=== PATIENT | female | born 1965 | race American Indian/Alaskan Native ===

== ENCOUNTER 2021-08-22 07:26 | Emergency (ER) | payer OTHER ==
[2021-08-22] MEDS ORDERED: SODIUM CHLORIDE 0.9% 1000 ML 1,000 ML IV ONE (08:40)
--- NOTE | 2021-08-22 08:50 | Emergency Department Report ---
ED Dizziness HPI - General Chief Complaint: Dizziness Stated Complaint: DIZZINESS/SYNCOPE Source: patient, EMS Mode of arrival: Stretcher Limitations: No Limitations - History of Present Illness Initial Comments: Patient is a 55-year-old female with past medical history of hypertension who is currently controlled on hydrochlorothiazide, metoprolol who presents emergency department complaint of near syncopal episode while at work. Patient states she felt dizzy and nearly passed out. Patient states that yesterday she was feeling abnormally. She denies any recent fevers chills cough. She denies any chest pain or shortness of breath. She denies history of pulmonary embolism. Patient denies any sick contacts. - Related Data Home Medications Medication Instructions Recorded Confirmed Last Taken hydroCHLOROthiazide 25 mg PO QDAY 08/22/21 08/22/21 Unknown Allergies Allergy/AdvReac Type Severity Reaction Status Date / Time No Known Allergies Allergy Verified 08/22/21 07:44 ED Review of Systems ROS: Stated complaint: DIZZINESS/SYNCOPE Other details as noted in HPI Constitutional: denies: chills, fever Eyes: denies: eye pain, eye discharge, vision change ENT: denies: ear pain, throat pain Respiratory: denies: cough, shortness of breath, wheezing Cardiovascular: denies: chest pain, palpitations Endocrine: no symptoms reported Gastrointestinal: denies: abdominal pain, nausea, diarrhea Genitourinary: denies: urgency, dysuria, discharge Musculoskeletal: denies: back pain, joint swelling, arthralgia Skin: denies: rash, lesions Neurological: denies: headache, weakness, paresthesias Psychiatric: denies: anxiety, depression Hematological/Lymphatic: denies: easy bleeding, easy bruising ED Past Medical Hx - Medications Home Medications: Home Medications Medication Instructions Recorded Confirmed Last Taken Type hydroCHLOROthiazide 25 mg PO QDAY 08/22/21 08/22/21 Unknown History ED Physical Exam - General Limitations: No Limitations General appearance: alert, in no apparent distress - Head Head exam: Present: atraumatic, normocephalic - Eye Eye exam: Present: normal appearance - ENT ENT exam: Present: mucous membranes moist - Neck Neck exam: Present: normal inspection - Respiratory Respiratory exam: Present: normal lung sounds bilaterally. Absent: respiratory distress, wheezes, rales, rhonchi - Cardiovascular Cardiovascular Exam: Present: regular rate, normal rhythm. Absent: systolic murmur, diastolic murmur, rubs, gallop - GI/Abdominal GI/Abdominal exam: Present: soft. Absent: distended, tenderness - Rectal Rectal exam: Present: deferred - Extremities Exam Extremities exam: Present: normal inspection - Back Exam Back exam: Present: normal inspection - Neurological Exam Neurological exam: Present: alert, oriented X3 - Psychiatric Psychiatric exam: Present: normal affect, normal mood - Skin Skin exam: Present: warm, dry, intact, normal color. Absent: rash ED Course Vital Signs 08/22/21 08/22/21 08/22/21 07:41 08:11 08:16 Temperature 98.1 F Pulse Rate 77 89 77 Respiratory 18 14 Rate Blood Pressure 88/51 Blood Pressure 94/63 [Left] O2 Sat by Pulse 95 93 95 Oximetry - Reevaluation(s) Reevaluation #1: 08/22/21 13:11 Patient is improved. Blood pressure is improved. We obtain orthostatics which were notable for blood pressure is 108 systolic and 117 systolic. Patient's vitals have normalized and her labs are grossly normal. EKG shows normal sinus rhythm. I discussed with patient and patient felt comfortable with plan for discharge given that she has been hydrated. Reevaluation #2: 08/22/21 14:07 Patient ambulates with no neurological deficits. She has a steady gait. She has some slight dizziness but no deficits. Given this I discussed the likely etiology of her symptoms is her blood pressure is on the lower side. She has been hydrated, her blood pressure is now improved. Her labs appear normal including normal white blood cell count, creatinine, hemoglobin, negative dimer. Given this I have asked patient to hold her blood pressure medicines and she is to follow-up with primary care this week. ED Medical Decision Making - Lab Data Result diagrams: 08/22/21 09:44 08/22/21 09:44 - EKG Data -: EKG Interpreted by Me EKG shows normal: sinus rhythm - EKG Data Interpretation: other 08/22/21 13:07 Possible old infarct, no previous to comare - Radiology Data Radiology results: report reviewed, image reviewed - Medical Decision Making Patient is a 55-year-old female who presents to the emergency department with complaints of dizziness. Patient has history of hypertension but is noted to be hypotensive upon arrival. She has received 1 L IV fluid with EMS. Differential includes acute kidney injury, dehydration, pulmonary embolism, CVA. Plan for evaluation with chest x-ray, EKG, CT scan of the brain. Will obtain dimer, basic labs and reassess after IV fluids. Orthostatic blood pressures will be collected. Critical care attestation.: If time is entered above; I have spent that time in minutes in the direct care of this critically ill patient, excluding procedure time. ED Disposition Clinical Impression: Dizziness Disposition: HOME / SELF CARE / HOMELESS Is pt being admited?: No Does the pt Need Aspirin: No Condition: Stable Instructions: Dizziness, [id number] Additional Instructions: Please hold your blood pressure for the next few days. If you pressures increase to 140s systolic you should restart your meds. Please call your doctor for an appointment. Referrals: MUMTAZ RHODES MD [Primary Care Provider] - 3-5 Days Forms: Work/School Release Form(ED)
--- NOTE | 2021-08-22 09:06 | XRay Report ---
CHEST 1 VIEW 08/22/2021 8:51 AM INDICATION / CLINICAL INFORMATION: Lightheadedness/Dizziness. COMPARISON: None available. FINDINGS: SUPPORT DEVICES: None. HEART / MEDIASTINUM: No significant abnormality. LUNGS / PLEURA: No significant pulmonary or pleural abnormality. No pneumothorax. ADDITIONAL FINDINGS: No significant additional findings. IMPRESSION: 1. No acute findings. Signer Name: Henrique Gonzalez MD Signed: 08/22/2021 9:02 AM Workstation Name: [id number]
--- NOTE | 2021-08-22 09:28 | Cat Scan Report ---
CT HEAD WITHOUT CONTRAST INDICATION / CLINICAL INFORMATION: Lightheadedness/Dizziness. TECHNIQUE: Axial imaging performed from the skull apex through the skull base without the use of cont rast. Sagittal and coronal reformatted images. All CT scans at this location are performed using CT dose reduction for ALARA by means of automated exposure control. COMPARISON: None available. FINDINGS: CEREBRAL PARENCHYMA: No significant abnormality. No acute territorial infarct. HEMORRHAGE: None. EXTRA-AXIAL SPACES: Normal in size and morphology for the patient's age. VENTRICULAR SYSTEM: Normal in size and morphology for the patient's age. MIDLINE SHIFT OR HERNIATION: None. CEREBELLUM / BRAINSTEM: No significant abnormality. CALVARIUM: No significant abnormality. ORBITS: Normal as visualized. PARANASAL SINUSES / MASTOID AIR CELLS: Normal as visualized. SOFT TISSUES of HEAD: No significant abnormality. ADDITIONAL FINDINGS: None. IMPRESSION: No acute intracranial abnormality. Signer Name: Tip Meyer Jr, MD Signed: 08/22/2021 9:23 AM Workstation Name: [id number]
[2021-08-22 10:10] LABS: Hyaline Casts,Urine 1 /LPF; Mucus,Urine FEW /HPF
[2021-08-22 10:19] LABS: Amphetamine Screen,Urine Negative; Benzodiazepines Screen,Urine Negative; Cannabinoid Screen,Urine Negative; Cocaine Screen,Urine Negative; Methadone Screen,Urine Negative; Opiate Screen,Urine Negative
[2021-08-22 10:29] LABS: INR 1.09 (0.87-1.13)
[2021-08-22 10:31] LABS: Hematocrit 44.6 % (30.3-42.9); Hemoglobin 14.3 gm/dl (10.1-14.3); Lymphocytes % (Auto) 12.4 % (13.4-35.0); Mean Corpuscular HGB Conc 32 % (30-34); Mean Corpuscular Volume 89 fl (79-97); Platelet Count 253 K/mm3 (140-440); Red Cell Distribution Width 14.8 % (13.2-15.2)
[2021-08-22 10:32] LABS: Basophils % (Auto) 0.5 % (0.0-1.8); Eosinophils % (Auto) 0.2 % (0.0-4.3); Lymphocytes # (Auto) 0.7 K/mm3 (1.2-5.4); Monocytes # (Auto) 0.6 K/mm3 (0.0-0.8)
[2021-08-22 10:41] LABS: Bilirubin,Urine Negative (Negative); Color,Urine Straw (Yellow)
[2021-08-22 10:43] LABS: Blood,Urine Negative (Negative); Protein,Urine <15 mg/dL mg/dL (Negative); Urobilinogen,Urine < 2.0 mg/dL (<2.0)
[2021-08-22 10:49] LABS: Alanine Aminotransferase 32 units/L (7-56); Albumin 3.7 g/dL (3.9-5); BUN/Creatinine Ratio 10; Blood Urea Nitrogen 11 mg/dL (7-17); Calcium 8.6 mg/dL (8.4-10.2); Hemolysis Index 5
[2021-08-22 16:23] VITALS: BP 117/62
--- NOTE | 2021-08-23 17:48 | Electrocardiograph Report ---
[facility] Test Date: 2021-08-22 Test Time: 12:55:17 Pat Name: JESSE DONAHUE Department: Room: Gender: F Fleet Administrator: HERBERT : 1965 Requested By: YEN MATA Order Number: [id number] Reading MD: Citlaly Claire Measurements Intervals [place] Rate: 67 P: 52 FL: 170 QRS: -23 QRSD: 73 T: 24 QT: 409 QTc: 434 Interpretive Statements Sinus rhythm No previous ECG available for comparison Electronically Signed On 08-23-2021 17:48:20 EDT by Citlaly Claire
== END 2021-08-22 16:21 | disposition home or self-care (01) ==
LOC: ED 07:26
DX: R42 Dizziness and giddiness (principal); R55 Syncope and collapse; Z79.899 Other long term (current) drug therapy
CPT/HCPCS: 36415; 70450; 71045; 80053; 80307; 81001; 83735; 84484; 85025; 85379; 85610; 93005; 96360; 99285; J7030; 80320; G0480